=== PATIENT | female | born 1975 | race Caucasian/White ===

== ENCOUNTER 2024-05-13 19:12 | Emergency (ER) | payer SELFPAY ==
[2024-05-13] MEDS ORDERED: Sodium Chloride 0.9% 10 ML Syringe FLUSH PRN (19:36)
[2024-05-13 20:06] LABS: HEMATOCRIT 47.3 % (37.0-47.0); HEMOGLOBIN 15.8 gm/dl (12.0-16.0); MEAN CORPUSCULAR HEMOGLOBIN 30.1 pg (28.0-32.0); MEAN CORPUSCULAR HGB CONC 33.4 g/dl (32.0-36.0); MEAN CORPUSCULAR VOLUME 90.1 fl (83.0-99.0); MEAN PLATELET VOLUME 9.2 fl (9.4-12.3); PLATELET COUNT,PLT 506 K/mm3 (150-400); RED BLOOD CELL COUNT 5.25 M/mm3 (4.10-5.30); WHITE BLOOD CELL COUNT,WBC 17.02 K/mm3 (3.9-11.3)
[2024-05-13 20:18] LABS: BAND PERCENT MAN 0 % (0-10); BASOPHILS PERCENT MAN 0 (0.1-1.2); EOSINOPHILS PERCENT MAN 3 % (0.7-5.8); LYMPHOCYTES % ATYPICAL MANUAL 0 %; LYMPHOCYTES PERCENT MAN 16 % (20-40); MONOCYTES PERCENT MAN 4 % (2-10)
[2024-05-13 20:22] LABS: PLATELET COUNT ESTIMATE INCREASED
[2024-05-13 20:24] LABS: A/G RATIO 0.7 (1-2); ALBUMIN 3.3 g/dl (3.4-5.0); BILIRUBIN TOTAL 0.3 mg/dL (0.2-1.0); BUN/CREATININE RATIO 7.8 (14-18); C-REACTIVE PROTEIN 2.88 mg/dL (<0.30); CREATININE 0.9 mg/dL (0.55-1.02); EST CRCL DRUG DOSING (CG) 68.04 mL/min; PROTEIN TOTAL,TP 8.1 g/dl (6.4-8.2)
[2024-05-13 20:34] LABS: INR 0.95; PROTHROMBIN TIME 10.1 SECONDS (9.7-12.0)
[2024-05-13 20:59] LABS: LACTIC ACID 3.6 mmol/L (0.4-2.0)
[2024-05-13] MEDS: Piperacillin/Tazobactam 4.5 GM in Sodium Chloride 0.9% 100 ML IV ONE (21:14)
[2024-05-13] MEDS: Sodium Chloride 0.9% 1,000 ML IV STA (21:15)
[2024-05-13 22:42] LABS: HEMOGLOBIN A1C > 14.0 %
== END 2024-05-13 21:24 | disposition left against medical advice (07) ==
LOC: JD.ED 19:12
DX: A41.9 Sepsis, unspecified organism (principal); E11.52 Type 2 diabetes mellitus with diabetic peripheral angiopathy with gangrene; I96 Gangrene, not elsewhere classified; Z53.29 Procedure and treatment not carried out because of patient's decision for other reasons; F17.210 Nicotine dependence, cigarettes, uncomplicated
CPT/HCPCS: 36415; 73660; 80053; 83036; 83605; 85007; 85027; 85610; 86140; 87040; 96374; 99283; J2543; 99285